=== PATIENT | female | born 1990 | race Native Hawaiian/Other Pacific Islander ===

== ENCOUNTER 2017-07-19 23:19 | Emergency (ER) | payer OTHER ==
[~2017-07-19] VITALS: Ht 170.2 cm; Wt 88.2 kg
[~2017-07-19 23:19] MED LIST: ACET50TA PO; IBUP-1114 PO; PRENTAB9 PO
[2017-07-20 00:39] LABS: BASO % 0.4 % (0.0-1.0); EOS # 0.2 10^3/uL (0.0-0.50); EOS % 2.4 % (0.0-3.0); IMMATURE GRANULOCYTE % 0.5 % (0-0); LYMPH # 2.1 10^3/uL (1.5-6.5); LYMPH % 22.8 % (24.0-44.0); MEAN CORPUSCULAR HEMOGLOBIN 30.4 pg (27.0-33.0); MEAN CORPUSCULAR HGB CONC 33.5 g/dl (32.0-36.5); MEAN CORPUSCULAR VOLUME 90.8 fl (80.0-96.0); MONO # 0.9 10^3/uL (0.0-0.8); MONO % 9.9 % (0.0-5.0); PLATELET COUNT, AUTOMATED 297 10^3/uL (150-450); RED CELL DISTRIBUTION WIDTH 12.4 % (11.5-14.5); WHITE BLOOD COUNT 9.4 10^3/uL (4.0-10.0)
[2017-07-20 00:46] LABS: ANION GAP 10 MEQ/L (8-16); BLOOD UREA NITROGEN 11 MG/DL (7-18); CALCIUM LEVEL 9.2 MG/DL (8.5-10.1); CARBON DIOXIDE LEVEL 24 MEQ/L (21-32); CHLORIDE LEVEL 107 MEQ/L (98-107); CREATININE FOR GFR 0.81 MG/DL (0.55-1.02); GLOMERULAR FILTRATION RATE > 60.0 (>60); GLUCOSE, FASTING 114 MG/DL (70-105); POTASSIUM SERUM 3.5 MEQ/L (3.5-5.1); SODIUM LEVEL 141 MEQ/L (136-145)
[2017-07-20 01:06] LABS: HCG, SERUM QUANTITATIVE < 1.0 MIU/ML
[2017-07-20] MEDS ORDERED: ISOVUE-370 76% 100ML VIAL (Q9967) As Ordered ONE (01:07)
--- NOTE | 2017-07-20 01:40 | REPUSA ---
CLINICAL HISTORY: Dyspnea, exclude PE. TECHNIQUE: Multiple incremental axial, coronal and oblique images are obtained from the thoracic inle t to the upper abdomen. Intravenous contrast material was administered as per pulmonary embolism prot ocol. COMMENTS: There is excellent opacification of pulmonary arterial system without evidence for pulmonary embolism . Aorta is of normal caliber without evidence for dissection or aneurysm. There is no evidence of pleural or parenchymal mass. There are no pleural effusions. There is no evid ence of hilar or mediastinal lymphadenopathy. The heart and great vessels are within normal limits. Images of the upper abdomen demonstrate no evidence of adrenal mass. The bony structures are free of lytic or blastic lesions. Gallstones are noted. IMPRESSION: No evidence for pulmonary embolism. Gallstones. Fluid-filled distended stomach. Recent ingestion of fluid versus gastroparesis. Thank you for your kind referral of this patient.
[2017-07-20 01:56] VITALS: BP 110/68
--- NOTE | 2017-07-20 08:09 | REP ---
Chest two views HISTORY: Cough Comparison: None The lungs are clear. The heart is normal in size. The pulmonary vasculature is normal in appearance. The bony structure is intact. IMPRESSION: No acute disease. Signed by Ravinder Medrano MD 07/20/2017 08:00 A
--- NOTE | 2017-07-20 18:01 | ECGEPIP ---
Stationary ECG Study [facility] - ED Test Date: 2017-07-20 Pat Name: FAUSTINO HUGO Department: Room: - Gender: F Personnel Security Specialist: RosdaoB: 1990 Requested By: CHARLEE Yoder PA-C Order Number: [id number] Reading MD: Aldair Graves Measurements Intervals [place] Rate: 91 P: 26 MN: 136 QRS: 54 QRSD: 106 T: 0 QT: 376 QTc: 464 Interpretive Statements SINUS RHYTHM POSSIBLE LEFT ATRIAL ENLARGEMENT MODERATE INTRAVENTRICULAR CONDUCTION DELAY NSTTW ABNORMALITIES NO PRIORS FOR COMPARISON Electronically Signed On 07-20-2017 18:01:32 EST by Aldair Graves
== END 2017-07-20 01:58 | disposition home or self-care (01) ==
LOC: M ED 23:19
DX: J06.9 Acute upper respiratory infection, unspecified (principal); R94.31 Abnormal electrocardiogram [ECG] [EKG]; K80.20 Calculus of gallbladder without cholecystitis without obstruction
CPT/HCPCS: 36415; 71020; 71275; 80048; 82550; 82553; 84702; 85025; 85379; 87804; 93005; 99284; Q9967

== ENCOUNTER → 2017-12-30 | Outpatient (CLI) | payer OTHER | LOC: M RAD 07:58 | DX: M79.604 Pain in right leg (principal) | CPT/HCPCS: 78315 ==